=== PATIENT | male | born 1995 | race Caucasian/White ===

== ENCOUNTER → 2017-06-23 17:58 | Outpatient (CLI) | payer OTHER, SELFPAY ==
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
== END ==
PROVIDERS: PCP Internal Medicine Adolescent Medicine; Visit Provider Nurse Practitioner Family
DX: M25.561 Pain in right knee (principal)
CPT/HCPCS: 73562

== ENCOUNTER → 2017-07-08 12:18 | Outpatient (CLI) | payer OTHER, SELFPAY ==
--- NOTE | 2017-07-08 12:28 | XR_ITS ---
XR hand RT min 3V HISTORY: Right hand pain ITS.REASON: RT HAND PAIN ORDERING PHYSICIAN: Dylon Casanova MD PATIENT AGE: 21 years COMPARISON: None FINDINGS: There is a nondisplaced transverse fracture involving the distal shaft of the fifth metacarpal with minimal anterior angulation of the distal fracture fragment. No other significant anomalies IMPRESSION: Nondisplaced boxer's fracture distal fifth metacarpal
== END ==
PROVIDERS: PCP Internal Medicine Adolescent Medicine; Visit Provider Internal Medicine Adolescent Medicine
DX: M79.641 Pain in right hand (principal)
CPT/HCPCS: 73130

== ENCOUNTER → 2017-07-18 08:59 | Outpatient (CLI) | payer OTHER, SELFPAY ==
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
== END ==
PROVIDERS: PCP Internal Medicine Adolescent Medicine; Visit Provider Orthopaedic Surgery
DX: S62.339A Displaced fracture of neck of unspecified metacarpal bone, initial encounter for closed fracture (principal)
CPT/HCPCS: 73130

== ENCOUNTER → 2020-03-28 11:37 | Outpatient (CLI) | payer BC, SELFPAY | PROVIDERS: PCP Internal Medicine Adolescent Medicine; Visit Provider Internal Medicine Adolescent Medicine | DX: Z03.818 Encounter for observation for suspected exposure to other biological agents ruled out (principal); K52.9 Noninfective gastroenteritis and colitis, unspecified | CPT/HCPCS: U0003 ==

== ENCOUNTER 2020-08-28 17:00 | Outpatient (RCR) | payer BC, SELFPAY ==
--- NOTE | 2020-08-15 17:12 | HMH.PTOPEV ---
PT Outpatient Evaluation Rehab PT Outpatient Evaluation Start: 08/15/20 16:45 Freq: Status: Active Protocol: Document 08/15/20 16:45 PDESEROUX (Rec: 08/15/20 17:12 PDESEROUX [id number]) Electronically Signed By Marcio Ramos, PT 08/15/20 16:45 Outpatient Therapy Subjective History Subjective History Pt. is a 24 year old male who presents to outpatient PT clinic w/ complaints of chronic and constant L-sided LB/LLE P! of insidous onset 4-5 months ago . Pt. reports sleeping in his truck one night and his L LB feeling stiff the next morning, w/ symptoms progressively worsening into his LLE. Pt. currently describes L LB symptoms as sharp and LLE symptoms as asleep. Pt. also reports his LLE gets real tired and hard to move at times. Pt. reports my whole leg is asleep. Pt. reports having no symptom relief w/ prescribed 800mg Ibuprofen, only symptom relief is positioned in prone w/ LLE hip and knee flexed. Pt . also reports having some symptom relief w/ the Chiropractor where they adjusted his spine. Pt. denies having injections nor diagnostic imaging for current pathology. Pt. also denies symptoms into RLE, and denies bowel/bladder dysfunction. 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 Pt. RTMD in 4wks. PMH includes RLE femoral surgical reconstruction and a Tonsillectomy. Chief Complaint Pain,Paresthesia,Weakness Symptom Type Ache,Sharp,Burning,Numbness, Tingling Symptoms Relieved By Rest/Positioning Symptoms Aggravated By Sitting,Standing,Bending/ Stooping Prior Functional Limitations None Current Functional Limitations Driving,Standing,Sitting,
--- NOTE | 2020-10-26 16:51 | HMH.PTOPEV ---
PT Outpatient Evaluation Rehab PT Outpatient Evaluation Start: 08/15/20 16:45 Freq: Status: Discharge Protocol: Document 08/15/20 16:45 PDESEROUX (Rec: 08/15/20 17:12 PDESEROUX [id number]) Electronically Signed By Marcio Ramos, BREEZY 08/15/20 16:45 Outpatient Therapy Subjective History Subjective History Pt. is a 24 year old male who presents to outpatient PT clinic w/ complaints of chronic and constant L-sided LB/LLE P! of insidous onset 4-5 months ago . Pt. reports sleeping in his truck one night and his L LB feeling stiff the next morning, w/ symptoms progressively worsening into his LLE. Pt. currently describes L LB symptoms as sharp and LLE symptoms as asleep. Pt. also reports his LLE gets real tired and hard to move at times. Pt. reports my whole leg is asleep. Pt. reports having no symptom relief w/ prescribed 800mg Ibuprofen, only symptom relief is positioned in prone w/ LLE hip and knee flexed. Pt . also reports having some symptom relief w/ the Chiropractor where they adjusted his spine. Pt. denies having injections nor diagnostic imaging for current pathology. Pt. also denies symptoms into RLE, and denies bowel/bladder dysfunction. 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 Pt. RTMD in 4wks. PMH includes RLE femoral surgical reconstruction and a Tonsillectomy. Chief Complaint Pain,Paresthesia,Weakness Symptom Type Ache,Sharp,Burning,Numbness, Tingling Symptoms Relieved By Rest/Positioning Symptoms Aggravated By Sitting,Standing,Bending/ Stooping Prior Functional Limitations None Current Functional Limitations Driving,Standing,Sitting,
== END 2020-09-28 15:30 | disposition home or self-care (01) ==
LOC: PT.CARL 17:00
PROVIDERS: PCP Internal Medicine Adolescent Medicine; Visit Provider Nurse Practitioner Family
DX: M54.42 Lumbago with sciatica, left side (principal)
CPT/HCPCS: 97110; 97140; 97163

== ENCOUNTER 2020-11-14 17:00 | Outpatient (RCR) | payer BC, SELFPAY | END 2020-12-25 10:11 | disposition home or self-care (01) | LOC: PT.CARL 17:00 | PROVIDERS: PCP Internal Medicine Adolescent Medicine; Visit Provider Nurse Practitioner Family | DX: M54.42 Lumbago with sciatica, left side (principal) | CPT/HCPCS: 97110; 97140; 97163 ==

== ENCOUNTER → 2021-12-04 07:54 | Outpatient (CLI) | payer BC, SELFPAY ==
--- NOTE | 2021-12-04 07:59 | US_ITS ---
FINAL REPORT CLINICAL HISTORY: ELEVATED LIVER ENZYMES FINDINGS: Sonographic images of the right upper quadrant were obtained. The pancreas is partially obscured.The liver has an unremarkable appearance. There are sludge in the gallbladder. There is no evidence of biliary ductal dilatation.The common duct measures 2 mm. Limited images of the right kidney are unremarkable. IMPRESSION: Sludge in the gallbladder. Reviewed, Interpreted and Dictated by Sb Doyle III, MD Transcribed by Chiqui Matt Authenticated and [facility]
--- NOTE | 2021-12-10 14:28 | PC.NURSE ---
Gary brought sleep device back and there was no data to upload. Called patient back he wants to reschedule to repeat after the holiday.
== END ==
PROVIDERS: PCP Internal Medicine Adolescent Medicine; Visit Provider Nurse Practitioner Family
DX: R74.8 Abnormal levels of other serum enzymes (principal)
CPT/HCPCS: 76705

== ENCOUNTER 2023-06-01 08:35 | Emergency (ER) | payer BC, SELFPAY ==
[2023-06-01 08:40] VITALS: BP 133/84; PULSE 75; RESP 20; TEMP 36.6; O2SAT 98; BMI 43.1
--- NOTE | 2023-06-01 08:53 | EXP.UTC ---
Discharge Plan Disposition Patient Disposition: Home, Self-Care Condition: Good Prescriptions Prescriptions: New amoxicillin [amoxicillin] 875 mg tablet 875 mg PO Q12H Qty: 20 0RF efjzohuoxlzgddx-grbtkvcae-WF [Bromfed DM] 2-30-10 mg/5 mL Syrup 5 ml PO Q6H PRN (Reason: Cough) Qty: 240 0RF prednisone [prednisone] 20 mg tablet 20 mg PO DAILY 4 Days Qty: 4 0RF Referrals Follow up/Referrals: Dylon Casanova MD [Primary Care Provider] - See instructions Activity Restrictions/Add. Instructions Additional Instructions/Restrictions: Drink plenty of fluids. Take tylenol or ibuprofen for pain or fever. Take the medications as directed. Follow up with your regular doctor. GO TO THE ER FOR ANY WORSENING SYMPTOMS Clinical Impressions Clinical Impression: Pharyngitis Instructions Patient Instructions: Strep Throat, DI for Strep Throat Discharge ED Provider: Jose Moreno [facility] General Stated complaint: swollen throat, sore throat Time Seen by Provider: 06/01/23 08:53 History of Present Illness Provider Complaint: He states that for the past 2 days he has had a very sore throat, malaise, and chills. Related Data Previous Rx's Medication Instructions Recorded amoxicillin 875 mg tablet 875 mg PO Q12H #20 tabs 06/01/23 ypjypmjyddnvckl-kanbwxlwzfbogjt-IG 5 ml PO Q6H PRN Cough #240 mL 06/01/23 2 mg-30 mg-10 mg/5 mL oral syrup (Bromfed DM) prednisone 20 mg tablet 20 mg PO DAILY 4 days #4 tabs 06/01/23 Allergies Allergy/AdvReac Type Severity Reaction Status Date / Time No Known Allergies Allergy Verified 07/09/17 08:58 [facility] Disclaimer: The information contained in this section may have been updated after the patient was seen, as this information can be updated by other users. Medical History (Updated 06/01/23 @ 09:36 by Jose Moreno APRN) Asthma Migraine Social History Smoking Status: Never smoker alcohol intake: never current occupational status: employed Travel in the last 8 weeks: None ROS Obtained: Yes All systems reviewed & no additional complaints except as documented Constitutional Constitutional: Reports chills and Reports fever(s) Eyes Eyes: Denies eye discharge ENT Ears, Nose, Mouth, and Throat: Reports as per HPI Cardiovascular Cardiovascular: Denies chest pain Respiratory Respiratory: Denies chest congestion and Reports cough Gastrointestinal Gastrointestingal: Reports nausea; Denies abdominal pain, constipation, cramping, diarrhea or vomiting Musculoskeletal Musculoskeletal: Denies arthralgias Integumentary/Breasts Skin/Breast: Denies rash Neurologic Neurologic: Denies paresthesias Physical Exam General General appearance: alert and in no apparent distress Head Head exam: atraumatic, normocephalic and normal inspection Eye Eye exam: Present normal appearance, PERRL and EOMI ENT ENT exam: Present mucous membranes moist and normal external ear exam Expanded ENT Exam TM/Canal exam: Bilateral TM: erythema and bulging Nose exam: Absent sinus tenderness Mouth exam: Present normal external inspection; Absent drooling Teeth exam: Present normal inspection Throat exam: Present tonsillar erythema, tonsillomegaly and tonsillar exudate Neck Neck exam: Present normal inspection, full ROM and trachea midline; Absent tenderness, meningismus or lymphadenopathy Chest Chest inspection: Present normal inspection and symmetric chest wall rise; Absent tenderness Respiratory Respiratory exam: Present normal lung sounds bilaterally; Absent respiratory distress, wheezes or stridor Cardiovascular Cardiovascular exam: Present regular rate and normal rhythm; Absent systolic murmur or diastolic murmur Abdominal Exam Abdominal exam: Present soft and normal bowel sounds; Absent distention, tenderness, guarding, rebound or rigidity Extremities Exam Extremities exam: Present normal inspection and normal capillary refill; Absent calf tenderness Back Exam
[2023-06-01 09:14] LABS: UTC Strep Screen (Rapid) Negative (Negative)
[2023-06-01 09:41] VITALS: BP 133/84; PULSE 75; RESP 20; TEMP 36.6; O2SAT 98
== END 2023-06-01 09:43 | disposition home or self-care (01) ==
PROVIDERS: Emergency Provider Nurse Practitioner Family; PCP Internal Medicine Adolescent Medicine
DX: J02.9 Acute pharyngitis, unspecified (principal); R50.9 Fever, unspecified; R05.9 Cough, unspecified; R11.0 Nausea; R53.81 Other malaise; J45.909 Unspecified asthma, uncomplicated
CPT/HCPCS: 87880; 99204; 99212; G0463

== ENCOUNTER 2024-02-04 14:02 | Outpatient (POV) | payer BC, SELFPAY ==
[2024-02-04 14:54] VITALS: BP 124/78; PULSE 78; RESP 18; O2SAT 99; BMI 40.4
--- NOTE | 2024-02-04 15:18 | A.OFFVIS_ITS ---
HPI Data of Consult Patient: new to practice Consult date: 02/04/24 Requesting Physician: La Goncalves APRN Primary Care Provider: Joelle Chopra APRN Consult Narrative Reason for consult: Low back pain, left leg pain History of present illness: Mr. Huggins is a 28 year old male who presents today as a new patient. He is a referral from Doug Dwyer's office. Today he rates his pain a 8 out of 10. Patient does state his pain is throughout his low back with radiating symptoms down his entire left extremity. He does describe this as a sharp aching sensation with numbness and tingling. He does state this is been going on for 2 years unrelated to any specific trauma or injury. He does state that it is very positional so depending on what he is doing determines whether or not the type of sensations he is experiencing. He does state the pain interferes with his ability perform activities of daily living such as cooking and cleaning. Patient has gone to physical therapy for longer than 12 weeks with no additional relief. Patient did also try chiropractor therapy with minimal improvement. He has tried Tylenol and other tiar-xvc-zgqrbuv medications along with muscle relaxers, heat and ice and topicals with no additional relief. Patient was also given an IM steroid injection with no improvement. Patient denies any prior surgery or injection history otherwise. His Mohit has been reviewed and is appropriate. CC: La Goncalves APRN [facility] Disclaimer: The information contained in this section may have been updated after the patient was seen, as this information can be updated by other users. Medical History Migraine Asthma Surgical History History of tonsillectomy Family History (Updated 02/04/24 @ 14:55 by Yvette Schultz RN) Other Unknown family medical history Social History (Updated 02/04/24 @ 15:02 by Yvette Schultz RN) Smoking Status: Never smoker alcohol intake: never current occupational status: employed Travel in the last 8 weeks: None Review of Systems Review of Systems Review of systems:: pertinent systems reviewed and negative unless documented below Review of systems (narrative): Review of Systems: General: No recent weight changes, no fever, no sleep disturbances Respiratory: No cough, no shortness of air, no recurring pulmonary infections Cardiovascular/peripheral vascular: No chest pain, no palpitations, no edema, no shortness of breath Gastrointestinal: No new onset incontinence, normal bowel movements reported Genitourinary: No new onset incontinence Musculoskeletal: Low back pain, left leg pain Psychiatric: [Normal mood/affect] Neurological: [Denies weakness in extremities], [denies balance issues] Meds Home Medications and Allergies Home Medications ?Medication ?Instructions ?Recorded ?Confirmed ?Type No Known Home Medications 02/04/24 02/04/24 History New Prescriptions to Start Prescriptions: Allergies Allergy/AdvReac Type Severity Reaction Status Date / Time No Known Allergies Allergy Verified 01/01/24 15:28 Objective Vital signs: Pulse Resp BP Pulse Ox O2 Del Method 78 18 124/78 99 Room Air 02/04/24 14:54 02/04/24 14:54 02/04/24 14:54 02/04/24 14:54 02/04/24 14:54 Narrative: Physical Exam: General: Alert and oriented x3, no acute distress, pleasant and cooperative Lungs: Respirations even and unlabored, symmetrical chest expansion Eyes: PERRL Musculoskeletal: Flexion and extension of lumbar [spine] somewhat guarded secondary to pain, [antalgic gait noted] positive left leg raise with decreased sensation to light touch and decreased reflexes Neurological: Speech clear, no gross sensory deficit Additional findings Additional findings: Lumbar MRI 01/09/2024 Findings: L4-L5 mild disc space narrowing and diffuse disc bulging. Small central disc protrusion. Mild spinal canal stenosis. Mild bilateral neuroforaminal narrowing and appears slightly worse on the left. Close approximation of the bulging disc and exiting L4 spinal nerves. Assessment and Plan *Assessment and plan (1) Degenerative disc disease, lumbar: Status: Acute Category: Medical Code(s): M51.36 - Other intervertebral disc degeneration, lumbar region (2) Lumbar radiculopathy: Status: Acute Category: Medical Code(s): M54.16 - Radiculopathy, lumbar region Plan Patient is experiencing significant pain throughout his low back and left leg. Patient does have numbness and tingling down into the extremity. I did discuss with the patient that he may benefit from a lumbar epidural steroid injection. Risk and benefits were discussed with the patient and he would like to proceed forward with this plan of care. Patient has tried and failed conservative therapy including physical therapy and chiropractor therapy along with continued at home stretching exercise for longer than 6 weeks. We will schedule the patient for an LESI L4-L5 under fluoroscopy. I did also discuss with the patient regarding that if he does not get significant relief that we can always send him for neurosurgery consult. Patient has been instructed to contact the clinic with any concerns before the next appointment. Dr. Huynh has reviewed this note and agrees with this plan of care. This note was dictated using voice recognition software and make contain errors or omissions. All injections are used with Lidocaine or Bupivacaine and Depo Medrol.
== END 2024-02-04 23:59 | disposition home or self-care (01) ==
LOC: SC.PAIN 14:03
PROVIDERS: PCP Nurse Practitioner Family; Visit Provider Nurse Practitioner Family
DX: M51.16 Intervertebral disc disorders with radiculopathy, lumbar region (principal); Z73.89 Other problems related to life management difficulty
CPT/HCPCS: 99202; G0463